=== PATIENT | female | born 1970 | race Caucasian/White ===

== ENCOUNTER 2022-06-22 11:39 | Emergency (ER) | payer OTHER ==
[~2022-06-22] VITALS: Ht 162.6 cm; Wt 63.5 kg
[2022-06-22 11:55] VITALS: BP 115/63
--- NOTE | 2022-06-22 12:06 | NUR ---
pt in room 4, nad, c/o epig pain 6/10, feels distended abd, + epig tenderness. sr up times 2, o2 sat 99% ra, mari ruiz.
[2022-06-22 12:28] LABS: BASOPHILS % (AUTO) 0.4 % (0.0-2.0); EOSINOPHILS # (AUTO) 0.1 K/uL (0-0.4); EOSINOPHILS % (AUTO) 0.7 % (0.0-4.0); HEMATOCRIT 40.7 % (36-48); HEMOGLOBIN 13.6 g/dL (12.0-16.0); MEAN CORPUSCULAR HEMOGLOBIN 28 pg (27-31); MEAN CORPUSCULAR HGB CONC 33 g/dL (33-37); MEAN CORPUSCULAR VOLUME 84.1 fL (80-94); MONOCYTES # (AUTO) 0.3 K/uL (0.8-1.0); MONOCYTES % (AUTO) 3.6 % (1.7-9.3); NEUTROPHILS # (AUTO) 8.3 K/uL (1.8-7.7); NEUTROPHILS % (AUTO) 85.3 % (42.2-75.2); PLATELET COUNT (AUTO) 172 K/uL (140-450); RED BLOOD CELL COUNT(AUTO) 4.84 MIL/uL (4.20-5.40); RED CELL DISTRIBUTION WIDTH 13.8 % (11.6-13.7); WHITE BLOOD COUNT (AUTO) 9.7 K/uL (4.8-10.8)
[2022-06-22 12:38] LABS: APPEARANCE,URINE HAZY (CLEAR); BILIRUBIN,URINE NEGATIVE (NEGATIVE); BLOOD, URINE 1+ (NEGATIVE); COLOR,URINE YELLOW (YELLOW); LEUKOCYTE ESTERASE ,URINE TRACE (NEGATIVE); NITRITE, URINE NEGATIVE (NEGATIVE); UGLUCOSE NEGATIVE (NEGATIVE)
[2022-06-22 12:52] LABS: RBC,URINE NONE SEEN /HPF (0-5); WBC,URINE 0-5 /HPF (0-5)
[2022-06-22 13:08] LABS: CARBON DIOXIDE 28.9 mmol/L (21-32); CREATININE 0.5 mg/dL (0.6-1.3); POTASSIUM 3.9 mmol/L (3.5-5.1); TOTAL BILIRUBIN 0.3 mg/dL (0.0-1.0)
--- NOTE | 2022-06-22 14:10 | NUR ---
pt a/o times 4, nad, epig pain 12/14, no n/v, o2 sat 99% ra, sr up times 2, awaits md ruiz
--- NOTE | 2022-06-22 16:21 | NUR ---
pt a/o times 4, nad, epig pain 10/14, no n/v, o2 sat 99% ra, sr up times 2, still awaits md ruiz.
[2022-06-22] MEDS ORDERED: ALUMINUM HYD/MAG/SIMETHICONE 30 ML UDC PO ONE (16:35)
[2022-06-22] MEDS ORDERED: FAMOTIDINE 20 MG TAB PO ONE (16:35)
[2022-06-22] MEDS ORDERED: FAMO-90 PO (16:36)
[2022-06-22] MEDS ORDERED: SUCR1TAB35 PO (16:36)
[2022-06-22 16:42] VITALS: BP 115/62
--- NOTE | 2022-06-22 16:45 | NUR ---
Patient discharged with v/s stable. Written and verbal after care instructions given and explained. Patient verbalized understanding. Ambulatory with steady gait. All questions addressed prior to discharge. Advised to follow up with PMD.
[2022-06-22] MEDS ORDERED: CEPH-588 PO (18:49)
== END 2022-06-22 16:45 | disposition home or self-care (01) ==
LOC: MED 11:39
DX: N39.0 Urinary tract infection, site not specified (principal); K29.70 Gastritis, unspecified, without bleeding; K21.9 Gastro-esophageal reflux disease without esophagitis; Z79.899 Other long term (current) drug therapy
CPT/HCPCS: 36415; 80053; 81001; 83690; 85025; 99283

== ENCOUNTER 2022-12-04 07:51 | Day surgery (SDC) | payer OTHER ==
[~2022-12-04] VITALS: Ht 152.4 cm; Wt 67.1 kg
[~2022-12-04 07:51] MED LIST: CEPH-588 PO; FAMO-90 PO; SUCR1TAB35 PO
[2022-12-04] MEDS ORDERED: diphenhydrAMINE 50 MG/ML VIAL ONE (08:42)
[2022-12-04] MEDS ORDERED: fentaNYL citrate 0.05 MG/ML VIAL ONE (08:42)
[2022-12-04] MEDS ORDERED: MIDAZOLAM 5 MG/5 ML VIAL ONE (08:43)
[2022-12-04] MEDS ORDERED: LIDOCAINE 2% 100 MG/5 ML UJET TP ONE (08:43)
[2022-12-04] MEDS ORDERED: MIDAZOLAM 5 MG/5 ML VIAL IV ONE (14:30)
[2022-12-04] MEDS ORDERED: fentaNYL citrate 0.05 MG/ML VIAL IVP ONE (14:30)
== END 2022-12-04 09:50 | disposition home or self-care (01) ==
LOC: MDS 07:51 → MMU 07:54 → MDS 09:50
PROVIDERS: ATTEND Internal Medicine Gastroenterology
DX: Z12.11 Encounter for screening for malignant neoplasm of colon (principal); K52.9 Noninfective gastroenteritis and colitis, unspecified; E78.5 Hyperlipidemia, unspecified; Z90.49 Acquired absence of other specified parts of digestive tract
CPT/HCPCS: 88305; J1200; J2250; J3010

== ENCOUNTER 2024-04-02 07:59 | Day surgery (SDC) | payer OTHER ==
[~2024-04-02] VITALS: Ht 154.9 cm; Wt 54.4 kg
[~2024-04-02 07:59] MED LIST changes: +SUCR-3 PO; -SUCR1TAB35 PO
[2024-04-02] MEDS ORDERED: fentaNYL citrate 0.05 MG/ML VIAL ONE (09:39)
[2024-04-02] MEDS: fentaNYL citrate 0.05 MG/ML VIAL IVP ONE (10:13)
[2024-04-02] MEDS ORDERED: MIDAZOLAM 2 MG/2 ML VIAL ONE (10:14)
[2024-04-02] MEDS: MIDAZOLAM 2 MG/2 ML VIAL IVP ONE (10:15)
[2024-04-02] MEDS: LIDOCAINE 2% 100 MG/5 ML UJET TP ONE (10:26)
== END 2024-04-02 12:20 | disposition home or self-care (01) ==
LOC: MOR 07:59 → MMU 08:02 → MOR 12:20
PROVIDERS: ATTEND Internal Medicine Gastroenterology
DX: R10.31 Right lower quadrant pain (principal); M81.0 Age-related osteoporosis without current pathological fracture; Z90.49 Acquired absence of other specified parts of digestive tract; Z98.891 History of uterine scar from previous surgery
CPT/HCPCS: 45380; 88305; J2250; J3010